=== PATIENT | male | born 1980 | race Caucasian/White ===

== ENCOUNTER 2019-09-15 17:36 | Outpatient (CLI) | payer OTHER, SELFPAY ==
[2019-09-15 18:09] LABS: Add Urine Microscopic? NO; Appearance Urine Clear (Clear); Bacteria Urine Trace /hpf; Bilirubin Urine Negative (Negative); Blood Urine Negative (Negative); Color Urine Straw (Yellow); Glucose Urine UA Negative (Negative); Ketones Urine Negative (Negative); Leukocyte Esterase Ur Negative LEU/UL (Negative); Nitrate Urine Negative (Negative); Protein Urine Negative (Negative); RBC Urine 0-2 /hpf (0-2); Specific Grav Ur 1.012 (1.001-1.035); Squamous Epithelial Cell Urine Rare /hpf (Few); Urobilinogen Urine Negative mg/dL (<2.0); WBC Urine 0-3 /hpf
[2019-09-15 19:49] LABS: Hepatitis B Surface Antigen Negative (Negative)
[2019-09-15 20:07] LABS: Hepatitis C Virus Antibody Negative (Negative)
[2019-09-16 14:26] LABS: Rapid Plasma Reagin Non-Reactive (NonReactive)
[2019-09-21 03:48] LABS: Hepatitis B Core Ab Total Nonreactive (Nonreactive)
== END 2019-09-15 17:37 | disposition home or self-care (01) ==
PROVIDERS: PCP Internal Medicine; Visit Provider Clinical Nurse Specialist
DX: R39.9 Unspecified symptoms and signs involving the genitourinary system (principal); A64 Unspecified sexually transmitted disease; Z11.3 Encounter for screening for infections with a predominantly sexual mode of transmission
CPT/HCPCS: 36415; 81003; 86592; 86704; 86803; 87340; 87491; 87529; 87536; 87591

== ENCOUNTER 2019-09-29 17:11 | Outpatient (CLI) | payer OTHER, SELFPAY ==
[2019-09-29 17:36] LABS: Basophils Absolute Auto 0.1 K/mm3 (0.0-0.1); Basophils Percent Auto 0.7 % (0.2-1.2); Eosinophils Absolute Auto 0.1 K/mm3 (0-0.3); Eosinophils Percent Auto 1.2 % (0-4.4); Hematocrit 47.2 % (42.0-52.0); Hemoglobin 16.5 g/dL (14.0-18.0); Immature Granulocyte Absolute 0.05 K/mm3 (0.00-0.031); Immature Granulocyte Percent A 0.7 % (0-0.5); Lymphocytes Absolute Auto 1.55 K/mm3 (0.9-3.2); Lymphocytes Percent Auto 22.7 % (18.3-44.2); Mean Corpuscular Hemoglobin 29.7 pg (26-34); Mean Platelet Volume 9.9 fl (7.4-10.4); Monocytes Absolute Auto 0.7 K/mm3 (0.1-0.6); Monocytes Percent Auto 10.7 % (2.6-8.5); Neutrophils Absolute Auto 4.4 K/mm3 (1.3-6.7); Platelet Count Result 214 k/mm3 (150-375); Red Blood Count 5.55 M/mm3 (4.6-6.20); Red Cell Distribution Width 12.1 % (11.5-14.5); White Blood Count 6.8 K/mm3 (4.5-10.0)
[2019-09-29 17:41] LABS: Add Urine Microscopic? NO; Appearance Urine Clear (Clear); Bilirubin Urine Negative (Negative); Blood Urine Negative (Negative); Color Urine Straw (Yellow); Glucose Urine UA Negative (Negative); Ketones Urine Negative (Negative); Leukocyte Esterase Ur Negative LEU/UL (NEGATIVE); Nitrate Urine Negative (Negative); Protein Urine Negative (Negative); Specific Grav Ur 1.013 (1.001-1.035); Urobilinogen Urine Negative mg/dL (<2.0)
[2019-09-29 17:50] LABS: Alanine Aminotransferase 32 U/L (4-50); Albumin Level 4.5 g/dL (3.5-5.1); Alkaline Phosphatase 74 U/L (38-126); Anion Gap 11.9 mmol/L (7-16); Aspartate Amino Transferase 25 U/L (17-59); Bilirubin,Total 0.8 mg/dL (0.2-1.3); Blood Urea Nitrogen 12 mg/dL (9-20); Calcium 9.5 mg/dL (8.4-10.2); Carbon Dioxide 24 mmol/L (22-30); Chloride 105 mmol/L (98-107); Estimated Glomerular Filt Rate > 60; Glucose 102 mg/dL (75-110); Potassium 3.9 mmol/L (3.4-5.0); Sodium 137 mmol/L (137-145)
== END 2019-09-29 17:12 | disposition home or self-care (01) ==
PROVIDERS: PCP Internal Medicine; Visit Provider Clinical Nurse Specialist
DX: N99.89 Other postprocedural complications and disorders of genitourinary system (principal); R39.9 Unspecified symptoms and signs involving the genitourinary system; R39.89 Other symptoms and signs involving the genitourinary system; N39.9 Disorder of urinary system, unspecified
CPT/HCPCS: 36415; 80053; 81003; 85025; 87086

== ENCOUNTER 2019-11-11 09:38 | Outpatient (CLI) | payer OTHER, SELFPAY ==
[2019-11-11 10:42] LABS: HIV 1/2 Ab P24 Ag Result Negative (Negative)
[2019-11-14 21:21] LABS: Herpes Simplex Type 1 DNA PCR Not Detected (Not Detected); Herpes Simplex Type 2 DNA PCR Not Detected (Not Detected)
== END 2019-11-11 09:39 | disposition home or self-care (01) ==
PROVIDERS: PCP Internal Medicine; Visit Provider Clinical Nurse Specialist
DX: Z20.2 Contact with and (suspected) exposure to infections with a predominantly sexual mode of transmission (principal)
CPT/HCPCS: 36415; 86703; 87529; G0432

== ENCOUNTER 2022-03-19 11:38 | Outpatient (CLI) | payer OTHER, SELFPAY ==
[2022-03-19 19:38] LABS: Basophils Absolute Auto 0.1 K/mm3 (0.0-0.1); Basophils Percent Auto 1.3 % (0.2-1.2); Eosinophils Absolute Auto 0.1 K/mm3 (0-0.3); Hematocrit 49.6 % (42.0-52.0); Hemoglobin 17.2 g/dL (14.0-18.0); Immature Granulocyte Absolute 0.04 K/mm3 (0.00-0.031); Immature Granulocyte Percent A 0.5 % (0-0.5); Lymphocytes Percent Auto 20.6 % (18.3-44.2); Mean Corpuscular HGB Conc 34.7 g/dl (32-36); Mean Corpuscular Hemoglobin 29.5 pg (26-34); Mean Corpuscular Volume 84.9 fl (80-100); Mean Platelet Volume 10.4 fl (7.4-10.4); Monocytes Absolute Auto 0.7 K/mm3 (0.1-0.6); Monocytes Percent Auto 9.4 % (2.6-8.5); Neutrophils Absolute Auto 5.2 K/mm3 (1.3-6.7); Neutrophils Percent Auto 67.2 % (45.5-73.1); Platelet Count Result 225 k/mm3 (150-375); Red Blood Count 5.84 M/mm3 (4.6-6.20); White Blood Count 7.8 K/mm3 (4.5-10.0)
[2022-03-19 20:32] LABS: HIV 1/2 Ab P24 Ag Result Negative (Negative)
[2022-03-19 20:40] LABS: Hepatitis C Virus Antibody Negative (Negative)
[2022-03-19 20:55] LABS: Alanine Aminotransferase 49 U/L (6-50); Albumin Level 4.8 g/dL (3.5-5.1); Alkaline Phosphatase 80 U/L (38-126); Anion Gap 8 mmol/L (8-16); Aspartate Amino Transferase 41 U/L (17-59); Bilirubin,Total 0.9 mg/dL (0.2-1.3); Blood Urea Nitrogen 13 mg/dL (9-20); Calcium 9.6 mg/dL (8.4-10.2); Carbon Dioxide 28 mmol/L (22-30); Chloride 100 mmol/L (98-107); Estimated Glomerular Filt Rate > 60; Glucose 95 mg/dL (65-110); Potassium 4.5 mmol/L (3.4-5.0); Sodium 136 mmol/L (137-145)
[2022-03-20 12:38] LABS: Rapid Plasma Reagin Non-Reactive (NonReactive)
[2022-03-22 14:58] LABS: Herpes Simplex Type 1 DNA PCR NOT DETECTED; Herpes Simplex Type 2 DNA PCR NOT DETECTED
== END 2022-03-19 11:39 | disposition home or self-care (01) ==
LOC: ANHGOSHLAB 11:40
PROVIDERS: PCP Internal Medicine; Visit Provider Nurse Practitioner
DX: N34.2 Other urethritis (principal); Z13.29 Encounter for screening for other suspected endocrine disorder; Z72.51 High risk heterosexual behavior
CPT/HCPCS: 36415; 80053; 81003; 85025; 86592; 86703; 86803; 87491; 87529; 87591; G0432

== ENCOUNTER 2022-03-19 15:40 | Outpatient (NON) | payer OTHER, SELFPAY ==
[2022-03-19 19:54] LABS: Add Urine Microscopic? NO; Appearance Urine Clear (Clear); Bilirubin Urine Negative (Negative); Blood Urine Negative (Negative); Color Urine Yellow (Yellow); Glucose Urine UA Negative (Negative); Ketones Urine Negative (Negative); Leukocyte Esterase Ur Negative LEU/UL (Negative); Nitrate Urine Negative (Negative); Protein Urine Negative (Negative); Urobilinogen Urine 0.2 mg/dL (<2.0)
== END 2022-03-19 15:41 | disposition home or self-care (01) ==
LOC: ANHGOSHLAB 15:42
PROVIDERS: PCP Internal Medicine; Visit Provider Nurse Practitioner
DX: N34.2 Other urethritis (principal); Z13.29 Encounter for screening for other suspected endocrine disorder; Z72.51 High risk heterosexual behavior
CPT/HCPCS: 81003

== ENCOUNTER → 2022-05-23 14:54 | Outpatient (CLI) | payer OTHER, SELFPAY ==
--- NOTE | ~2022-05-23 | XR_ITS ---
[id number]_[id number] 05/23/2022 15:13 Indication: Neck pain Procedure: 3 view cervical spine Comparison: No prior studies for comparison. Findings: Normal cervical alignment. Vertebral body heights are maintained. Mild disc narrowing at C5 -6. No prevertebral soft tissue abnormality. Odontoid process is normal. There is mild uncinate hyper trophy at C5-6. Lung apices are normal. Impression: 1: Mild cervical spondylosis. Reviewed, dictated and finalized at location A. Impression: 1: Mild cervical spondylosis.
== END ==
PROVIDERS: PCP Internal Medicine; Visit Provider Chiropractor
DX: M54.2 Cervicalgia (principal); M43.02 Spondylolysis, cervical region
CPT/HCPCS: 72040

== ENCOUNTER 2024-11-25 08:34 | Outpatient (CLI) | payer OTHER, SELFPAY ==
--- OUTSIDE RECORDS SUMMARY | 2024-02-21 16:30 | XMS_ITS ---
Author Organization [facility] Address [facility]5 David Armando [address] [id number] Care Team Providers Care Lumber Buyer Name Role Phone Elbert Josue Unavailable [phone] Migration, Provider Unavailable Unavailable REASON FOR VISIT Multum To Medispan Conversion Encounter Medications Medication SIG (Take, Route, Frequency, Duration) Notes Start Date End Date Status MORTIN 800MG 1 ORALLY Q 8 H PRN PAIN WITH FOOD; Duration: 30 DAYS *Please review for potential replacement for e-prescription and drug interaction check* 01/25/2013 Active DermOtic 0.01 % 5 gtt in each affected ear 2 times a day; Duration: 23 day(s) 01/25/2013 Active Encounters Encounter Location Date Provider Diagnosis [facility] [place] [address] [address] [phone] 02/21/2024 Provider Migration Otalgia NOS 388.70 Assessments Encounter Date Diagnosis (ICD Code) Assessment Notes Treatment Notes Treatment Clinical Notes Section Notes 02/21/2024 Otalgia NOS (ICD9-CM - 388.70) Plan Of Treatment Medication Medication Name Sig Start Date Stop Date Notes MORTIN 800MG 1 ORALLY Q 8 H PRN P AIN WITH FOOD; Duration: 30 DAYS 01/25/2013 *Please review for potential replacement for e-prescription and drug interaction check* DermOtic 0.01 % 5 gtt in each affect ed ear 2 times a day; Duration: 23 day(s) 01/25/2013 Progress Notes * David RAYMOND FDOB:1980 (44 yo M)Acc No.[id number]:02/21/2024 Patient: David OLSEN Provider: Sly johnson Migration :1980 A ge:43 Y S ex:Male Date:02/21/2024 Address:[address] [place], [place] [phone] Subjective: * Chief Complaints: * 1 . Multum To Medispan Conversion Encounter. * Medical History: Objective: * Vitals: * Physical Examination: Assessment: * Assessment: 1. Mandeep carver NOS - 388.70 (Primary) Plan: * Treatment: * Images: * Electronic signature of Prov ider Migration on 11/25/2024 at 08:54 AM CDT Sign off status: Pending * Provider: Sly Ledbetter Date: 04/23/2023 Generated for Bethany stewart/Faye/Anthony on: 0 11/25/2024 08:54 AM CDT
--- OUTSIDE RECORDS SUMMARY | 2024-11-25 08:54 | XMS_ITS | Encounter Summary ---
Author Organization [facility] Address [address] [place] [address] Care Team Providers Care Lab Animal Technologist Name Role Phone Unavailable Primary Care Provider Unavailabl e Encounter Details Date Type Department Care Team (Latest Contact Info) Description 12/17/2023 [facility] [place] Social History Tobacco Use Types Packs/Day Years Used Date Smoking Tobacco: Never Assessed Sex and Gender Information Value Date Recorded Sex Assigned at Not on file Legal Sex Male 7:49 AM [facility] Gender Identity Not on file Sexual Orientation Not on file documented as of this encounter Plan of Treatment Not on file documented as of this encounter Visit Diagnoses Not on filedocumented in this encounter
--- OUTSIDE RECORDS SUMMARY | 2024-11-25 08:55 | XMS_ITS | Clinical Summary ---
Author Organization [facility] Address [address] [place] [address] Care Team Providers Care Division Operations Manager Name Role Phone Unavailable Primary Care Provider Unavailabl e Social History Tobacco Use Types Packs/Day Years Used Date Smoking Tobacco: Never Assessed Sex and Gender Information Value Date Recorded Sex Assigned at Not on file Legal Sex Male 7:49 AM [facility] Gender Identity Not on file Sexual Orientation Not on file Plan of Treatment Not on file Insurance [facility]
--- OUTSIDE RECORDS SUMMARY | 2024-11-25 08:55 | XMS_ITS | Encounter Summary ---
Author Organization [facility] Address [address] [place] [address] Care Team Providers Care Basting Puller Name Role Phone Unavailable Primary Care Provider Unavailabl e Encounter Details Date Type Department Care Team (Latest Contact Info) Description 02/12/2023 [facility] [place] ADM Social History Tobacco Use Types Packs/Day Years Used Date Smoking Tobacco: Never Assessed Sex and Gender Information Value Date Recorded Sex Assigned at Not on file Legal Sex Male 7:49 AM [facility] Gender Identity Not on file Sexual Orientation Not on file documented as of this encounter Plan of Treatment Not on file documented as of this encounter Visit Diagnoses Not on filedocumented in this encounter
--- OUTSIDE RECORDS SUMMARY | 2024-11-25 08:55 | XMS_ITS | Patient Health Record ---
Author Organization [facility] Address [address] [facility] [address] [place], [place] [phone] Care Team Providers Care Religious Education Director Name Role Phone Elbert Josue Unavailable [phone] Migration, Provider Unavailable Unavailable Reason For Referral No Information Medications Medication SIG (Take, Route, Frequency, Duration) Notes Start Date End Date Status MORTIN 800MG 1 ORALLY Q 8 H PRN PAIN WITH FOOD; Duration: 30 DAYS *Please review for potential replacement for e-prescription and drug interaction check* 01/25/2013 Active DermOtic 0.01 % 5 gtt in each affected ear 2 times a day; Duration: 23 day(s) 01/25/2013 Active Problems Problem Type SNOMED Code ICD Code Onset Dates Problem Status W/U Status Risk Notes Problem Allergic rhinitis (11303916) ALLERGIC RHINITIS NOS (477.9) Active confirmed Problem Dysfunction of eustachian tube (12520189) Dysfunction of eustachian tube (381.81) Active confirmed Problem Pain of ear (finding) (383552976) Otalgia NOS (388.70) Active confirmed Encounters Encounter Location Date Provider Diagnosis [facility] [address] [place] [address] [place], [place] [phone] 02/21/2024 Provider Migration Otalgia NOS 388.70 Assessments Encounter Date Diagnosis (ICD Code) Assessment Notes Treatment Notes Treatment Clinical Notes Section Notes 02/21/2024 Otalgia NOS (ICD9-CM - 388.70) Plan Of Treatment No Information Insurance Providers Payer Name Payer Address Payer Phone Subscriber Number Group Number Insured Name Patient Relationship to Insured Coverage Start Date Coverage End Date [facility] [id number] [place] [id number] David Raymond Self - patient is the insured Medical (General) History Surgical History Surgery Date(Month/Year) epidermal cyst removed 2008
--- OUTSIDE RECORDS SUMMARY | 2024-11-25 08:55 | XMS_ITS | Encounter Summary ---
Author Organization [facility] Address [address] [place] [address] Care Team Providers Care Market Research Specialist Name Role Phone Unavailable Primary Care Provider Unavailabl e Encounter Details Date Type Department Care Team (Latest Contact Info) Description 02/10/2023 [facility] [place]M Social History Tobacco Use Types Packs/Day Years Used Date Smoking Tobacco: Never Assessed Sex and Gender Information Value Date Recorded Sex Assigned at Not on file Legal Sex Male 7:49 AM [facility] Gender Identity Not on file Sexual Orientation Not on file documented as of this encounter Plan of Treatment Not on file documented as of this encounter Visit Diagnoses Not on filedocumented in this encounter
--- OUTSIDE RECORDS SUMMARY | 2024-11-25 08:55 | XMS_ITS | Encounter Summary ---
Author Organization [facility] Address [address] [place] [address] Care Team Providers Care Township Supervisor Name Role Phone Unavailable Primary Care Provider Unavailabl e Encounter Details Date Type Department Care Team (Latest Contact Info) Description 04/11/2023 [facility] [place] ADM Social History Tobacco Use Types Packs/Day Years Used Date Smoking Tobacco: Never Assessed Sex and Gender Information Value Date Recorded Sex Assigned at Not on file Legal Sex Male 7:49 AM [facility] Gender Identity Not on file Sexual Orientation Not on file documented as of this encounter Plan of Treatment Not on file documented as of this encounter Visit Diagnoses Not on filedocumented in this encounter
[2024-11-25 13:04] LABS: Hematocrit 48.4 % (42.0-52.0); Hemoglobin 16.2 g/dL (14.0-18.0); Immature Granulocyte Percent A 0.7 % (0-0.5); Lymphocytes Absolute Auto 2.19 K/mm3 (0.9-3.2); Mean Corpuscular HGB Conc 33.5 g/dl (32-36); Mean Corpuscular Hemoglobin 29.2 pg (26-34); Mean Corpuscular Volume 87.4 fl (80-100); Nucleated Red Blood Cells Absolute Auto 0.000 K/mm3 (0.0-0.012); Nucleated Red Blood Cells Perc 0.0 % (0.0-0.2); Platelet Count Result 187 k/mm3 (150-375); Red Blood Count 5.54 M/mm3 (4.6-6.20); White Blood Count 6.8 K/mm3 (4.5-10.0)
[2024-11-25 13:15] LABS: Alanine Aminotransferase 25 U/L (6-50); Albumin Level 4.2 g/dL (3.5-5.1); Alkaline Phosphatase 68 U/L (38-126); Anion Gap 6 mmol/L (4-12); Aspartate Amino Transferase 49 U/L (17-59); Bilirubin,Total 0.8 mg/dL (0.2-1.3); Blood Urea Nitrogen 17 mg/dL (9-20); Calcium 8.8 mg/dL (8.4-10.2); Carbon Dioxide 26 mmol/L (22-30); Chloride 106 mmol/L (98-107); Cholesterol 194 mg/dL (0-200); Estimated Glomerular Filt Rate > 60; Glucose 84 mg/dL (65-110); HDL Direct 34 mg/dL; Potassium 3.9 mmol/L (3.4-5.0); Sodium 138 mmol/L (137-145); Total Protein 7.1 g/dL (6.3-8.2); Triglycerides 152 mg/dL (<150)
[2024-11-25 13:53] LABS: Prostate Specific Antigen 0.8 ng/mL (< OR = 4.0)
== END 2024-11-25 08:35 | disposition home or self-care (01) ==
LOC: ANHGOSHLAB 08:35
PROVIDERS: PCP Internal Medicine; Visit Provider Nurse Practitioner
DX: Z13.29 Encounter for screening for other suspected endocrine disorder (principal); Z13.220 Encounter for screening for lipoid disorders; Z12.5 Encounter for screening for malignant neoplasm of prostate
CPT/HCPCS: 36415; 80053; 80061; 84153; 85025; G0103

== ENCOUNTER 2025-01-19 01:49 | Day surgery (SDC) | payer OTHER, SELFPAY ==
--- OUTSIDE RECORDS SUMMARY | 2024-02-21 15:30 | XMS_ITS ---
Author Organization [facility] Address [facility]5 David Armando [address] [id number] Care Team Providers Care Recreation Adviser Name Role Phone Elbert Josue Unavailable [phone] Migration, Provider Unavailable Unavailable REASON FOR VISIT Multum To Medispan Conversion Encounter Medications Medication SIG (Take, Route, Frequency, Duration) Notes Start Date End Date Status MORTIN 800MG TABLET 1 ORALLY Q 8 H PRN PAIN WITH FOOD; Duration: 30 DAYS *Please review for potential replacement for e-prescription and drug interaction check* 01/25/2013 Active DermOtic 0.01 % Oil 5 gtt in each affected ear 2 times a day; Duration: 23 day(s) 01/25/2013 Active Encounters Encounter Location Date Provider Diagnosis [facility] [place] [address] [address] [phone] 02/21/2024 Provider Migration Otalgia NOS 388.70 Assessments Encounter Date Diagnosis (ICD Code) Assessment Notes Treatment Notes Treatment Clinical Notes Section Notes 02/21/2024 Otalgia NOS (ICD9-CM - 388.70) Plan Of Treatment Medication Medication Name Sig Start Date Stop Date Notes MORTIN 800MG TABLET 1 ORALLY Q 8 H PRN PAIN WITH FOOD; Duration: 30 DAYS 01/25/2013 *Please review for potential replacement for e-prescription and drug interaction check* DermOtic 0.01 % Oil 5 gtt in each affected ear 2 times a day; Duration: 23 day(s) 01/25/2013 Progress Notes * David RAYMOND FDOB:1980 (44 yo M)Acc No.[id number]:02/21/2024 Patient: David Sosa Provider: Sly Ledbetter :1980 A ge:43 Y S ex:Male Date:02/21/2024 Address:[address] [place], [place] [id number] Subjective: * Chief Complaints: * M ultum To Medispan Conversion Encounter Assessment: * Assessment: 1. Mandeep carver NOS - 388.70 (Primary) Plan: * Treatment: * Electronic signature of Prov ider Migration on 01/19/2025 at 01:51 AM [facility] HAND Sign off status: Pending * Provider: Sly Ledbetter Date: 04/23/2023 Generated for Bethany stewart/Faye/Anthony on: 03/21/2024 01:51 AM [facility] HAND
[2025-01-06 13:58] VITALS: BMI 33.8
--- OUTSIDE RECORDS SUMMARY | 2025-01-19 01:52 | XMS_ITS | Encounter Summary ---
Author Organization [facility] Address [address] [place] [address] Care Team Providers Care Boat Repairer Name Role Phone Unavailable Primary Care Provider Unavailabl e Encounter Details Date Type Department Care Team (Latest Contact Info) Description 12/17/2023 [facility] [place]M Social History Tobacco Use [...]
--- OUTSIDE RECORDS SUMMARY | 2025-01-19 01:52 | XMS_ITS | Encounter Summary ---
Author Organization [facility] Address [address] [place] [address] Care Team Providers Care Transition Coach Name Role Phone Unavailable Primary Care Provider Unavailabl e Encounter Details Date Type Department Care Team (Latest Contact Info) Description 04/11/2023 [facility] [place]M Social History Tobacco Use Types Packs/Day Years Used Date Smoking Tobacco: Never Assessed Sex and Gender Information Value Date Recorded Sex Assigned at Not on file Legal Sex Male 7:49 AM [facility] Gender Identity Not on file Sexual Orientation Not on file documented as of this encounter Plan of Treatment Not on file documented as of this encounter Visit Diagnoses Not on filedocumented in this encounter
--- OUTSIDE RECORDS SUMMARY | 2025-01-19 01:52 | XMS_ITS | Encounter Summary ---
Author Organization [facility] Address [address] [place] [address] Care Team Providers Care Manager Of Business Operations Name Role Phone Unavailable Primary Care Provider Unavailabl e Encounter Details Date Type Department Care Team (Latest Contact Info) Description 02/12/2023 [facility] [place] ADM Social History Tobacco Use Types Packs/Day Years Used Date Smoking Tobacco: Never Assessed Sex and Gender Information Value Date Recorded Sex Assigned at Not on file Legal Sex Male 7:49 AM [facility] Gender Identity Not on file Sexual Orientation Not on file documented as of this encounter Plan of Treatment Not on file documented as of this encounter Visit Diagnoses Not on filedocumented in this encounter
--- OUTSIDE RECORDS SUMMARY | 2025-01-19 01:52 | XMS_ITS | Patient Health Record ---
Author Organization [facility] Address [address] [facility] [address] [place], [place] [phone] Care Team Providers Care Lambskin Trimmer Name Role Phone Elbert Josue Unavailable [phone] Migration, Provider Unavailable Unavailable Reason For Referral [...] a day; Duration: 23 day(s) 01/25/2013 Active Social History Social History Additional Details Category Social Info Options Details Social History Occupation project manag er Problems Problem Type SNOMED Code ICD Code Onset Dates Problem Status W/U Status Risk Notes Problem Allergic rhinitis (66604875) ALLERGIC RHINITIS NOS (477.9) Active confirmed Problem Dysfunction of eustachian tube (72276966) Dysfunction of eustachian tube (381.81) Active confirmed Problem Pain of ear (finding) (917323020) Otalgia NOS (388.70) Active confirmed Encounters Encounter Location Date Provider Diagnosis [facility] [address] [facility] [address] [place], [place] [phone] 02/21/2024 Provider Migration Otalgia NOS 388.70 Assessments Encounter Date Diagnosis (ICD Code) Assessment Notes Treatment Notes Treatment Clinical Notes Section Notes 02/21/2024 Otalgia NOS (ICD9-CM - 388.70) Plan Of Treatment No Information Insurance Providers Payer Name Payer Address Payer Phone Subscriber Number Group Number Insured Name Patient Relationship to Insured Coverage Start Date Coverage End Date [facility] [address] [place] [address] [phone] [id number] David Raymond Self - patient is the insured Medical (General) History Surgical History Surgery Date(Month/Year) epidermal cyst removed 2008
--- OUTSIDE RECORDS SUMMARY | 2025-01-19 01:52 | XMS_ITS | Data Portability ---
Author Organization [facility], [facility] - OP Address [address] [place] [address] Assessment No assessment recorded. Plan of Treatment Reminders Order Date Submit Date Provider Last Modified By Organization Details Last Modified Time Details Appointments None recorded. Lab streptococc us group A DNA 2018 019 [id number] In-House Test, For Internal Use Only, Do Not Delete/merge, 11080 9 11:08:17 Referral None recorded. Procedures None recorded. Surgeries None recorded. Imaging None recorded. Medication Orders None recorded. Patient TargetsNo targets recorded. Patient InstructionsNo instructions recorded. Reason for Referral None Reported. Results Created Date Observation Date Name Description Value Unit Range Abnormal Flag Note LastModifiedBy Organization Detail LastModifiedTime 02/07/20 19 02/06/2019 strep tococ cus group A DNA Result negati ve Not Available In-House Te st For Internal Use Only, Do Not Delete/merge, [id number] 02/06/2019 10:56:52 Result Notes None recorded. Problems No Known Problems Medical Equipment None Reported. Allergies No known drug allergies Medications Not known to be on any medication Vitals Date Recorded Body weight Heart rate Respiratory rate Oxygen saturation Oxygen saturation in Arterial blood by Pulse oximetry Body temperature Systolic And Diastolic Provider Name and Address Organization Details Last Updated DateTime 9 47847.3 2 g 78 /min 18 /min 98 % 98 % 98.3 [degF] 124/68 mm[Hg] Parker Chen [facility] 9 10:55:27 Social History Question Answer Notes LastModified by Organizat ion Details LastModified Time Tobacco Smoking Status Never Smoker Parker Chen [facility] 02/06/2019 10:56:05 Are You Blind Or Do You Have Difficulty Seeing? No Information not available 02/06/2019 What Is Your Level Of Caffeine Consumption? None Information not available 02/06/2019 What Type Of Diet Are You Following? REGULAR Information not available 02/06/2019 What Was The Date Of Your Most Recent Tobacco Screening? 02/06/2019 Information not available 02/06/2019 How Much Tobacco Do You Smoke? No Information not available 02/06/2019 Sex: Unknown Functional Status Question Answer Note LastModified by Organizat ion Details LastModified Time What is your level of alcohol consumption? None Information not available 02/06/2019 What is your exercise level? Occasional Information not available 02/06/2019 Mental Status Question Answer Note LastModified by Organization D etails LastModified Time Do you have difficulty concentrating, remembering or making decisions? No Information no t available 02/06/2019 Family History Relationship Description Onset Age of this Age Resolved Age Notes LastModified by Organization Details LastModified Time Father No current problems or disability Not available 02/06 10:55:50 Mother No current problems or disability Not available 02/06 10:55:50 Medical History Condition Response Prostate Problems N Headaches/Migraines N Ear Pain/Infection N Fatigue N Skin Problems N Palpitations N Asthma N Heart Attack N Seizure Disorder N Constipation / Bowel Problem N Gastrointestinal Problems N Hypertension / High Blood Pressure N Diabetes N Liver Problems N Arthritis N Cancer N Bone/Joint Problems N Depression/Anxiety/Mood Disorder N Urinary Problems N Back Problems N Thyroid Disorder N Bowel Disorder N Hernia N Hearing Problems N High Cholesterol N Chest Pain N Irregular Heart Beat N Dizziness/Fainting N Numbness/Tingling N Past Encounters Encounter ID Performer Location Encounter Start Date Encounter Closed Date Diagnosis/Indication Diagnosis SNOMED-CT Code Diagnosis ICD10 Code Diagnosis IMO Codes Diagnosis Note [id number] Gurjit Edwards DO [facility] [address] [place] [address] 02/06/2019 10:30:53 02/06/2019 17:06:57 Pharyngitis 599036283 J02.9 Strep negative, tylenol and lozenges for comfort. Health Concerns Section Related Observation LastModified by Organization Detai ls LastModified Time None Recorded Concern Status LastModified by Organization Details LastModified Time None Recorded Advance Directives Directive None Recorded Payers Insurance Date Sequence Insurance Name Policy Number Policy [employer] Covered Member ID [employer] Member ID Guarantor Name 02/06/2019 1 [place] [id number] David Alona Mandi [id number] David Raymond Notes Date Note Type Note Provider Name and Address Organization Details Recorded Time 02/06/2019 text/html Throat PainRepor rangel by PatientHPIFor location, patient reportsbilateral. For quality, patient reportssore. For severity, patient reportsmoderate. For onset/timing, patient reportsabrupt. For associated symptoms, patient reportsno stress,no coughing with sputum,no choking,no throat tickle/itch,no globus sensation,no odynophagia,no dysphagia,no burping,no hoarseness,no neck/shoulder muscle tension,no weight loss,no loss of appetite, andno fever. For duration, (6 days). Gurjit Edwards, DO [address] [facility],[address], [place], [address], [facility] 02/06/2019 11:12:55
--- OUTSIDE RECORDS SUMMARY | 2025-01-19 01:52 | XMS_ITS | Encounter Summary ---
Author Organization [facility] Address [address] [place] [address] Care Team Providers Care Wire Coating Operator Metal Name Role Phone Unavailable Primary Care Provider Unavailabl e Encounter Details Date Type Department Care Team (Latest Contact Info) Description 02/10/2023 [facility] [place] ADM Social History Tobacco Use Types Packs/Day Years Used Date Smoking Tobacco: Never Assessed Sex and Gender Information Value Date Recorded Sex Assigned at Not on file Legal Sex Male 7:49 AM [facility] Gender Identity Not on file Sexual Orientation Not on file documented as of this encounter Plan of Treatment Not on file documented as of this encounter Visit Diagnoses Not on filedocumented in this encounter
--- OUTSIDE RECORDS SUMMARY | 2025-01-19 01:52 | XMS_ITS | Clinical Summary ---
Author Organization [facility] Address [address] [place] [address] Care Team Providers Care Silverware Assembler Name Role Phone Unavailable Primary Care Provider Unavailabl e Social History Tobacco Use Types Packs/Day Years Used Date Smoking Tobacco: Never Assessed Sex and Gender Information Value Date Recorded Sex Assigned at Not on file Legal Sex Male 7:49 AM [facility] Gender Identity Not on file Sexual Orientation Not on file Plan of Treatment Not on file Insurance [facility]
[2025-01-19 13:30] VITALS: BP 127/88; PULSE 74; RESP 16; TEMP 35.9; O2SAT 98; BMI 33.1
[2025-01-19] MEDS: LACTATED RINGERS 1,000 ML 150 ML IV CONT (13:54)
--- NOTE | 2025-01-19 14:09 | P.PNAN_ITS ---
Anes - Initial Pre Proc Eval Procedure: Operation Date: 01/19/25 14:15 Proposed Procedures p Screening Colonoscopy - Izaiah Ontiveros MD Date/Time: 01/19/25 14:09 Surgeon: Izaiah Ontiveros MD Pre Op Diagnosis: Encounter for screening for malignant neoplasm of Patient Data Age: 44 Gender: M Height: 1.8 m Weight: 107.7 kg Last Vital Signs Temp 35.9 C L 01/19/25 13:30 Pulse 74 01/19/25 13:30 Resp 16 01/19/25 13:30 BP 127/88 01/19/25 13:30 Pulse Ox 98 01/19/25 13:30 O2 Del Method Room Air 01/19/25 13:30 Allergies Allergy/AdvReac Type Severity Reaction Status Date / Time No Known Allergies Allergy Unknown Verified 01/19/25 13:38 Home Medications ?Medication ?Instructions ?Recorded ?Confirmed ?Type No Home Medications 03/19/22 01/06/25 H istory Patient hx anesthesia problems: none Family hx anesthesia problems: none Results Review: All pre-operative results and documents have been reviewed as part of the pre- operative evaluation. [facility] Past Medical History Medical History Lesion of penis ENT (otolaryngology) follow-up encounter Chicken pox Surgical History Surgical History [place] teeth removed 1998 H/O removal of cyst 2008 Family History Family History Grandparent Type 2 diabetes mellitus Father No problems noted. Social History Social History Smoking status: Never smoker Alcohol intake: never Substance use: never Substance use type: does not use Lack of Transportation: No Lack of Food: Never True Current Housing: I Have Housing Concerned About Future Housing: No Difficulty Paying Gas/Electric Bills: No Difficulty Paying for Meds: No Currently Unemployed: No Education: Bachelor's Degree Difficulty w/ Childcare or Family Care: No Living arrangements: with family Spiritual care concerns: No Anes - Eval Final PreProcedure Day of Procedure 01/19/25 14:09 Patient weight: obese Heart: regular rate and rhythm Lungs: clear to auscultation Airway: Mallampati scale class II Neurological: alert and oriented Last oral intake: >/= 8 hours ASA classification: II Emergent: no Anesthetic plan: proceed Anesthesia type and monitoring: general GIVS and standard monitoring Results Review: All pre-operative results and documents have been reviewed as part of the pre- operative evaluation. Informed Consent: The patient's anesthetic plan and its attendant risks and benefits were discussed with the patient/family/POA. Questions were solicited and answers provided to the satisfaction of the patient/family/POA.
--- NOTE | 2025-01-19 14:27 | P.HP_ITS ---
History of Present Illness History of Present Illness Consent: Risks, benefits, and alternatives have been discussed and questions answered. Patient agrees to proceed with procedure. Chief complaint: Encounter for screening for malignant neoplasm of Narrative: David Raymond is a 44 year old male here for first screening colonoscopy Review of Systems Review of Systems: All systems reviewed & are unremarkable except as noted in HPI and below PMFSH Past Medical History Medical History Lesion of penis ENT (otolaryngology) follow-up encounter Chicken pox Surgical History Surgical History [place] teeth removed 1998 H/O removal of cyst 2008 Family History Family History Grandparent Type 2 diabetes mellitus Father No problems noted. Social History Social History Smoking status: Never smoker Alcohol intake: never Substance use: never Substance use type: does not use Lack of Transportation: No Lack of Food: Never True Current Housing: I Have Housing Concerned About Future Housing: No Difficulty Paying Gas/Electric Bills: No Difficulty Paying for Meds: No Currently Unemployed: No Education: Bachelor's Degree Difficulty w/ Childcare or Family Care: No Living arrangements: with family Spiritual care concerns: No Meds Home Medications and Allergies Home Medications ?Medication ?Instructions ?Recorded ?Confirmed ?Type No Home Medications 03/19/22 01/06/25 H istory Allergies Allergy/AdvReac Type Severity Reaction Status Date / Time No Known Allergies Allergy Unknown Verified 01/19/25 13:38 Vital Signs Vital Signs - 24 hr 01/19/25 13:30 Temperature 96.7 F L Pulse Rate 74 Respiratory Rate 16 Blood Pressure 127/88 Pulse Oximetry 98 Oxygen Delivery Room Air Exam Const: General: comfortable and no acute distress HENMT: Face/Nose/Sinus: Normal nares present Eyes: General: appearance normal, both eyes and all related structures Resp: Auscultation: clear to auscultation bilaterally Cardio: Rate: regular rate Rhythm: regular rhythm GI: Inspection: non-distended GI Palp: Yes Soft to palpation Skin: General skin exam: normal color Extrem: General: normal to inspection Psych: Mental Status: mental status grossly normal Assessment and Plan Assessment and plan (1) Screening for colon cancer: Code(s): Z12.11 - Encounter for screening for malignant neoplasm of colon Status: Acute Assessment and Plan: colonoscopy
[2025-01-19 14:45] VITALS: BP 106/80; PULSE 83; RESP 17; O2SAT 97
--- NOTE | 2025-01-19 14:45 | S_PTH ---
PATIENT: David Raymond LOC: [facility]#:[id number] AGE/SX: 44/M ROOM: RE01/19/[address]: Izaiah Ontiveros MD : 1980 BED: DIS: 01/19/2025 SPEC #: [id number] RECD: 01/20/25 08:38 STATUS: JUVENAL REQ #: [id number] JOANNA: 01/19/25 14:[address]: Izaiah Ontiveros DEPT: [facility] Surgical RECD BY: Sarah Ngo ENTERED: 01/20/25 08:38 SP TYPE: Surgical OTHR DR: Benjamin Christensen DO Tissues: A - Colon Polypectomy Procedures: Hematoxylin and Eosin Stain Gross and Microscopic Level 4
[2025-01-19 14:55] VITALS: BP 127/81; PULSE 67; RESP 25; O2SAT 99
[2025-01-19 15:05] VITALS: BP 119/80; PULSE 77; RESP 20; O2SAT 99
== END 2025-01-19 15:17 | disposition home or self-care (01) ==
PROVIDERS: PCP Internal Medicine; Referring Provider Nurse Practitioner; Visit Provider Internal Medicine Gastroenterology
PROC: 0DJD8ZZ Inspection of Lower Intestinal Tract, Via Natural or Artificial Opening Endoscopic (ICD-10-PCS; CPT 45378; principal; 2025-01-19 14:15)
DX: Z12.11 Encounter for screening for malignant neoplasm of colon (principal); K63.5 Polyp of colon; E66.9 Obesity, unspecified; Z68.33 Body mass index [BMI] 33.0-33.9, adult; Z98.890 Other specified postprocedural states
CPT/HCPCS: 45385; 88305; J2003; J2704; J7120